=== PATIENT | male | born 1990 | race Two or more races ===

== ENCOUNTER 2016-11-21 12:21 | Emergency (ER) | payer SELFPAY ==
[~2016-11-21] VITALS: Ht 170.2 cm; Wt 74.8 kg
[2016-11-21 14:00] VITALS: BP 112/63
== END 2016-11-21 14:02 | disposition home or self-care (01) ==
LOC: ER 12:22
DX: S83.005A Unspecified dislocation of left patella, initial encounter (principal); W01.0XXA Fall on same level from slipping, tripping and stumbling without subsequent striking against object, initial encounter; Y93.01 Activity, walking, marching and hiking; Y92.9 Unspecified place or not applicable; Y99.8 Other external cause status
CPT/HCPCS: 29505; 73564; 99284; A4606; Z7610